=== PATIENT | female | born 1995 | race African-American/Black ===

== ENCOUNTER 2016-06-21 02:03 | Emergency (ER) | payer OTHER ==
[2016-06-21] MEDS ORDERED: ONDANSETRON 4 MG ORAL DISINTEGRATING TAB (S0181) As Ordered ONE (05:28)
--- NOTE | 2016-06-21 05:56 | EDDOCDS ---
Nurse's Notes [facility] Name: Ciara Simmons Age: 20 yrs Sex: Female : 1995 Arrival Date: 06/21/2016 Time: 02:03 Bed 7 Private MD: Diagnosis: 15 weeks gestation of ;Nausea Presentation: 06/21 02:09 Presenting complaint: Patient states: abdominal cramping with nausea and vomiting af2 today. 15 wks . Risk factors: the patient reports no vaginal bleeding. Adult Sepsis Screening: The patient does not have new or worsening altered mentation. Patient's respiratory rate is less than 22. Systolic blood pressure is greater than 100. Patient has a qSOFA score of 0- Negative Sepsis Screen. Suicide/Homicide risk assessment- the patient denies having any suicidal and/or homicidal ideations and does not present with any other emotional, behavioral or mental health complaints. 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 Transition of care: patient was not received from another setting of care. 02:09 Acuity: DEXTER Level 3 af2 02:09 Method Of Arrival: Walkin/Carried/Asstd af2 Triage Assessment: 02:11 General: Appears in no apparent distress, Behavior is cooperative. Pain: Location: af2 abdomen Pain currently is 7 out of 10 on a pain scale. HIV screening NA for this visit Offered previously. GI: Reports cramping, lower abdominal pain, nausea. Derm: Skin is normal. 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 Tylenol 325 mg Oral tab every 4 hours - PMHx: PTSD; - PSHx: none; - The history from nurses notes was reviewed: and I agree with what is documented. - Social history: Smoking status: Patient states was never smoker of tobacco. No barriers to communication noted, The patient speaks fluent [place]. - Family history: Not pertinent. - : The pt / caregiver states he / she is not on anticoagulants. Home medication list is obtained from the patient. - Hospitalizations: : No recent hospitalization is reported. - Exposure Risk Screening:: None identified. - Immunization history:: All immunizations up-to-date. - Social history:: the patient is a non-smoker, the patient does not drink alcohol. Screenin:09 Screening information is obtained from the patient. Fall risk: No risks identified. mlc Assistance ADL's: requires no assistance with activities of daily living. Abuse/DV Screen: The patient / caregiver reports he/she is: not in a situation that causes fear, pain or injury. pt states she currently lives with friends but feels safe. Nutritional screening: Has had N/V for 3 or more days. Advance Directives: Currently, there is no health care proxy. home support is adequate. Assessment: 03:09 General: Appears in no apparent distress, comfortable, Behavior is appropriate for age, mlc cooperative. Pain: Location: suprapubic area, right lower quadrant and left lower quadrant Pain currently is 7 out of 10 on a pain scale. Quality of pain is described as crampy. Neurological: Level of Consciousness is awake, alert, Oriented to person, place, time. Respiratory: Airway is patent Respiratory effort is even, unlabored, Respiratory pattern is regular, symmetrical. GI: Abdomen is gravid Bowel sounds present X 4 quads. Abd is tender to palpation in suprapubic area, right lower quadrant and left lower quadrant Reports vomiting, pt reports vomiting after every meal for approx 3 days. : Denies vaginal bleeding. Derm: Skin is pink, warm & dry. 04:19 Reassessment: Patient appears in no apparent distress at this time. no changes since mlc prior. pt resting comfortably . 05:36 General: Appears in no apparent distress, comfortable, Behavior is cooperative. mlc Neurological: Level of Consciousness is awake, alert, Oriented to person, place, time. Respiratory: Airway is patent Respiratory effort is even, unlabored, Respiratory pattern is regular. Derm: Skin is pink, warm & dry. 05:36 Reassessment: pt reports feeling stressed at work and stress at home, asking if there mlc is anything we can do. MAY Babb notified. . Social Work Consult: 05:45 Social Work Note: Met with PT and her roommate was present. PT she is and she jfb is happy about it despite the fact that she and her argue frequently. PT has moved in with a friend temporarily but she is planning to return to her . 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 PT denies SI/HI and she will present to the [facility] in the am to establish care. She is also seen at the OBGYN via [facility] with next appointment on Saturday. 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 Vital Signs: 02:08 BP 133 / 80; Pulse 78; Resp 18 S; Temp 98.0(TE); Pulse Ox 100% on R/A; Weight 53.52 kg af2 (R); Height 5 ft. 2 in. (157.48 cm) (R); Pain 7/10; 05:36 BP 111 / 75; Pulse 79; Resp 18; Temp 97.8; Pulse Ox 97% ; Pain 6/10; mlc 02:08 Body Mass Index 21.58 (53.52 kg, 157.48 cm) af2 Vitals: 02:08 Log In Time: June 21, 2016 at 02:08. af2 04:19 Heart Tones 145BPM. mlc ED Course: 02:05 Patient visited by Fan Solorio, Reg. pm4 02:05 Patient moved to Waiting pm4 02:10 Triage Initiated af2 02:11 Patient visited by Leonila Miller RN. af2 02:11 Patient moved to Pre RCE af2 02:41 Maris Durham RN is Primary Nurse. cz 02:41 Patient moved to 7 cz 03:11 Patient visited by Maris Durham RN. mlc 04:01 Ramakrishna Henning MD is Attending Physician. pc 04:13 Patient visited by Ramakrishna Henning MD. pc 04:20 Patient visited by Maris Durham RN. [facility] 05:00 [facility] Payment Agreement was scanned into [employer] and attached to record. hs2 05:22 Alex Kelly MD is Referral Physician. pc 05:36 The patient / caregiver is instructed regarding the plan of care and ED course. mlc 05:36 No IV's were initiated during this patient's visit. No procedures done that require [facility] assistance. 05:37 Patient visited by Maris Durham RN. mlc Administered Medications: 05:35 Drug: Ondansetron ODT 4 mg [ondansetron 4 mg disintegrating tablet (1 tabs)] Route: PO; mlc 05:35 Follow up: Response: Pt left department before re-evaluation is appropriate [facility] Order Results: Lab Order: Urinalysis; SPEC'M 06/21/16 03:58 Test: APPEARANCE, URINE; Value: CLEAR; Range: CLEAR; Status: F Test: COLOR, URINE; Value: STRAW; Range: YELLOW; Status: F Test: PH,URINE; Value: 7.0; Range: 5.0-9.0; Units: UNITS; Status: F Test: SPECIFIC GRAVITY URINE AUTO; Value: 1.005; Range: 1.002-1.035; Status: F Test: PROTEIN, URINE AUTO; Value: NEGATIVE; Range: NEGATIVE; Units: mg/dL; Status: F Test: GLUCOSE, URINE (UA) AUTO; Value: NEGATIVE; Range: NEGATIVE; Units: mg/dL; Status: F Test: KETONE, URINE AUTO; Value: NEGATIVE; Range: NEGATIVE; Units: mg/dL; Status: F Test: UROBILINOGEN, URINE AUTO; Value: 0.2; Range: 0.0-2.0; Units: mg/dL; Status: F Test: BILIRUBIN, URINE AUTO; Value: NEGATIVE; Range: NEGATIVE; Status: F Test: NITRITE, URINE AUTO; Value: NEGATIVE; Range: NEGATIVE; Status: F Test: LEUKOCYTE ESTERASE, URINE AUTO; Value: NEGATIVE; Range: NEGATIVE; Status: F Test: BLOOD, URINE BLOOD; Value: NEGATIVE; Range: NEGATIVE; Status: F Test: WBC, URINE AUTO; Value: 1; Range: 0-3; Units: /HPF; Status: F Test: RBC, URINE AUTO; Value: 1; Range: 0-3; Units: /HPF; Status: F Test: BACTERIA, URINE AUTO; Value: 1+; Range: NEGATIVE; Abnormal: Above high normal; Status: F Test: SQUAMOUS EPITHELIAL CELL UR AU; Value: 1; Range: 0-6; Units: /HPF; Status: F Test: HYALINE CAST, URINE AUTO; Value: 0; Range: 0-1; Units: /LPF; Status: F Outcome: 05:23 Discharge ordered by Provider. 05:36 Discharge Assessment: Patient awake, alert and oriented x 3. No cognitive and/or mlc functional deficits noted. Patient verbalized understanding of disposition instructions. patient administered narcotics - no. The following High Risk Discharge criteria are identified: None. Discharged to home ambulatory, with friend. Condition: stable. Discharge instructions given to patient, Instructed on discharge instructions, follow up and referral plans. medication usage, Demonstrated understanding of instructions, medications, Pt was receptive of discharge instructions/ teaching. Prescriptions given X 1. No special radiology studies were completed. Property sent home with patient. 05:54 Work note provided to patient. [facility] 05:55 Patient left the ED. [facility] Signatures: Ramakrishna Henning MD MD pc Zecher, Calvin, ALAYNA RN Cierra Johnson, PSA PSA Maris Alonzo RN RN mlc Fulton, Amber, RN RN 2 Mere Duggan, Reg Reg hs2 Fan Solorio, Reg Reg pm4 MTDD
--- NOTE | 2016-06-21 05:56 | EDDOCDS ---
Physician Documentation [facility] Name: Ciara Simmons Age: 20 yrs Sex: Female : 1995 Arrival Date: 06/21/2016 Time: 02:03 Bed 7 Private MD: Disposition: 06/21 05:21 Critical Care: Critical care not applicable. pc Disposition: 06/21/16 05:23 Discharged to Home/Self Care. Impression: 15 weeks gestation of , Nausea. - Condition is Stable. - Discharge Instructions: Abdominal Pain During , Nausea, Adult, Second Trimester of , [id number]. - Prescriptions for Diclegis 10- 10 mg - take 2 tablet by ORAL route every 6-8 hours; 30 tablet. - Medication Reconciliation, Local Pharmacy Hours, Work Release Form - 1 day form. - Follow up: Alex Kelly MD; When: As previously arranged; Reason: Continuance of care. - Problem is new. - Symptoms have improved. HPI: 04:17 This 20 yrs old Female presents to ER via Walkin/Carried/Asstd with pc complaints of Abdominal Cramping. 04:17 The history is obtained from the patient. The gestational age is estimated to be 15 pc weeks. The patient presents with abdominal pain, described as crampy, in the abdomen diffusely, nausea and vomiting, 3 times since the onset of symptoms. Symptoms began suddenly yesterday, and are unchanged since the onset. The patient has care through a private OB clinic, with Dr. Kelly. The patient has not experienced similar symptoms in the past. The patient has been recently seen by an heat and frost insulator helper specialist. Historical: - Allergies: No known drug Allergies; - Home Meds: 1. Tylenol 325 mg Oral tab every 4 hours - PMHx: PTSD; - PSHx: none; - The history from nurses notes was reviewed: and I agree with what is documented. - Social history: Smoking status: Patient states was never smoker of tobacco. No barriers to communication noted, The patient speaks fluent Mongolian. - Family history: Not pertinent. - : The pt / caregiver states he / she is not on anticoagulants. Home medication list is obtained from the patient. - Hospitalizations: : No recent hospitalization is reported. - Exposure Risk Screening:: None identified. - Immunization history:: All immunizations up-to-date. - Social history:: the patient is a non-smoker, the patient does not drink alcohol. 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 The gastrointestinal and genitourinary pc components are also addressed in the HPI. 04:20 GI/: decreased bowel movements. pc Exam: 04:17 General Appearance: alert, no acute distress. pc 04:17 ENT: ear, nose and throat normal, pharynx normal. 04:17 Neck: The exam reveals no acute abnormalities. ROM is normal and painless. No nuchal rigidity is noted.. 04:17 Respiratory: breathing is even and unlabored, breath sounds are normal. 04:17 Cardiovascular: regular pulse rate, regular heart rhythm, normal heart sounds, equal and full pulses bilaterally. 04:17 Abdomen: non-tender, normal bowel sounds, no organomegaly, the fundal height is is measured at 16 cm. 04:17 Abdomen: the heart tones were heard with a Doppler device and are 156 bpm. 04:17 Back: normal inspection. 04:17 Skin: skin color is normal, warm, dry. 04:17 Extremities: The extremities have a grossly normal appearance, are non-tender, without acute ROM abnormalities, no pedal edema. 04:17 Neuro: alert, oriented to person, place and time, cranial nerves normal as tested, no motor deficits, no sensory deficits. Vital Signs: 02:08 BP 133 / 80; Pulse 78; Resp 18 S; Temp 98.0(TE); Pulse Ox 100% on R/A; Weight 53.52 kg af2 / 117.99 lbs (R); Height 5 ft. 2 in. (157.48 cm) (R); Pain 7/10; 05:36 BP 111 / 75; Pulse 79; Resp 18; Temp 97.8; Pulse Ox 97% ; Pain 6/10; mlc 02:08 Body Mass Index 21.58 (53.52 kg, 157.48 cm) af2 MDM: 03:29 Heart Tones ordered. pc 03:30 Urinalysis Ordered. EDMS 03:30 Urine Culture Ordered. EDMS 04:13 Urinalysis Reviewed. pc 04:17 Differential diagnosis: discomfort of , urinary tract infection, constipation. pc Plan: labs, heart tones. 04:56 Financial registration complete. hs2 05:00 [facility] Payment Agreement was scanned into [employer] and attached to record. hs2 05:21 Data reviewed: old medical records, vital signs, nurses notes, lab test results. Test pc interpretation: LAB - all labs as ordered have been reviewed, interpreted and considered in the overall management of the clinical presentation;. The patient has been re-examined and re-evaluated. The patient's symptoms have mildly improved after treatment. Disposition: The historical points, examination findings, and any diagnostic results supporting the provided diagnosis, were discussed with the patient or legal guardian. The need for outpatient follow up with the provider listed on their discharge instructions was discussed. They were encouraged to return to [facility], or the nearest ED, if symptoms worsen/persist, or for any other questions/concerns. 05:22 Ondansetron ODT Oral Disintegrating Tablet 4 mg PO once ordered. pc Administered Medications: 05:35 Drug: Ondansetron ODT 4 mg [ondansetron 4 mg disintegrating tablet (1 tabs)] Route: PO; mlc 05:35 Follow up: Response: Pt left department before re-evaluation is appropriate [facility] Signatures: Dispatcher MedHoNumecent EDRamakrishna Turner MD MD pc Maris Durham RN RN mlc Leonila Miller RN RN af2 Mere Duggan, Reg Reg hs2 The chart was reviewed and I authenticate all verbal orders and agree with the evaluation and treatment provided.Corrections: (The following items were deleted from the chart) 04:20 04:17 All systems are negative except as listed. The gastrointestinal and genitourinary pc components are also addressed in the HPI. pc Attachments: 05:00 [facility] Payment Agreement hs2 MTDD
--- NOTE | 2016-06-23 06:56 | EDDOCDS ---
Physician Documentation [facility] Name: Ciara Simmons Age: 20 yrs Sex: Female : 1995 Arrival Date: 06/21/2016 Time: 02:03 Bed 7 Private MD: Disposition: 06/21 05:21 Critical Care: Critical care not applicable. pc Disposition: 06/21/16 05:23 Discharged to Home/Self Care. Impression: 15 weeks gestation of , Nausea. - Condition is Stable. - Discharge Instructions: Abdominal Pain During , Nausea, Adult, Second Trimester of , [id number]. - Prescriptions for Diclegis 10- 10 mg - take 2 tablet by ORAL route every 6-8 hours; 30 tablet. - Medication Reconciliation, Local Pharmacy Hours, Work Release Form - 1 day form. - Follow up: Alex Kelly MD; When: As previously arranged; Reason: Continuance of care. - Problem is new. - Symptoms have improved. HPI: 04:17 This 20 yrs old Female presents to ER via Walkin/Carried/Asstd with pc complaints of Abdominal Cramping. 04:17 The history is obtained from the patient. The gestational age is estimated to be 15 pc weeks. The patient presents with abdominal pain, described as crampy, in the abdomen diffusely, nausea and vomiting, 3 times since the onset of symptoms. Symptoms began suddenly yesterday, and are unchanged since the onset. The patient has care through a private OB clinic, with Dr. Kelly. The patient has not experienced similar symptoms in the past. The patient has been recently seen by an supervisor customer complaint service specialist. Historical: - Allergies: No known drug Allergies; - Home Meds: 1. Tylenol 325 mg Oral tab every 4 hours - PMHx: PTSD; - PSHx: none; - The history from nurses notes was reviewed: and I agree with what is documented. - Social history: Smoking status: Patient states was never smoker of tobacco. No barriers to communication noted, The patient speaks fluent Telugu. - Family history: Not pertinent. - : The pt / caregiver states he / she is not on anticoagulants. Home medication list is obtained from the patient. - Hospitalizations: : No recent hospitalization is reported. - Exposure Risk Screening:: None identified. - Immunization history:: All immunizations up-to-date. - Social history:: the patient is a non-smoker, the patient does not drink alcohol. 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 The gastrointestinal and genitourinary pc components are also addressed in the HPI. 04:20 GI/: decreased bowel movements. pc Exam: 04:17 General Appearance: alert, no acute distress. pc 04:17 ENT: ear, nose and throat normal, pharynx normal. 04:17 Neck: The exam reveals no acute abnormalities. ROM is normal and painless. No nuchal rigidity is noted.. 04:17 Respiratory: breathing is even and unlabored, breath sounds are normal. 04:17 Cardiovascular: regular pulse rate, regular heart rhythm, normal heart sounds, equal and full pulses bilaterally. 04:17 Abdomen: non-tender, normal bowel sounds, no organomegaly, the fundal height is is measured at 16 cm. 04:17 Abdomen: the heart tones were heard with a Doppler device and are 156 bpm. 04:17 Back: normal inspection. 04:17 Skin: skin color is normal, warm, dry. 04:17 Extremities: The extremities have a grossly normal appearance, are non-tender, without acute ROM abnormalities, no pedal edema. 04:17 Neuro: alert, oriented to person, place and time, cranial nerves normal as tested, no motor deficits, no sensory deficits. Vital Signs: 02:08 BP 133 / 80; Pulse 78; Resp 18 S; Temp 98.0(TE); Pulse Ox 100% on R/A; Weight 53.52 kg af2 / 117.99 lbs (R); Height 5 ft. 2 in. (157.48 cm) (R); Pain 7/10; 05:36 BP 111 / 75; Pulse 79; Resp 18; Temp 97.8; Pulse Ox 97% ; Pain 6/10; mlc 02:08 Body Mass Index 21.58 (53.52 kg, 157.48 cm) af2 MDM: 03:29 Heart Tones ordered. pc 03:30 Urinalysis Ordered. EDMS 03:30 Urine Culture Ordered. EDMS 04:13 Urinalysis Reviewed. pc 04:17 Differential diagnosis: discomfort of , urinary tract infection, constipation. pc Plan: labs, heart tones. 04:56 Financial registration complete. hs2 05:00 [facility] Payment Agreement was scanned into [email or web address] and attached to record. hs2 05:21 Data reviewed: old medical records, vital signs, nurses notes, lab test results. Test pc interpretation: LAB - all labs as ordered have been reviewed, interpreted and considered in the overall management of the clinical presentation;. The patient has been re-examined and re-evaluated. The patient's symptoms have mildly improved after treatment. Disposition: The historical points, examination findings, and any diagnostic results supporting the provided diagnosis, were discussed with the patient or legal guardian. The need for outpatient follow up with the provider listed on their discharge instructions was discussed. They were encouraged to return to [facility], or the nearest ED, if symptoms worsen/persist, or for any other questions/concerns. 05:22 Ondansetron ODT Oral Disintegrating Tablet 4 mg PO once ordered. pc Administered Medications: 05:35 Drug: Ondansetron ODT 4 mg [ondansetron 4 mg disintegrating tablet (1 tabs)] Route: PO; mlc 05:35 Follow up: Response: Pt left department before re-evaluation is appropriate [facility] Signatures: Dispatcher MedHoGeneva Mars EDMS Ramakrishna Henning MD MD pc Maris Durham RN RN mlc Leonila Miller RN RN af2 Mere Duggan, Reg Reg hs2 The chart was reviewed and I authenticate all verbal orders and agree with the evaluation and treatment provided.Corrections: (The following items were deleted from the chart) 04:20 04:17 All systems are negative except as listed. The gastrointestinal and genitourinary pc components are also addressed in the HPI. pc Attachments: 05:00 [facility] Payment Agreement hs2 Chart Complete MTDD
--- NOTE | 2016-06-23 06:56 | EDDOCDS ---
Physician Documentation [facility] Name: Ciara Simmons Age: 20 yrs Sex: Female : 1995 Arrival Date: 06/21/2016 Time: 02:03 Bed 7 Private MD: Disposition: 06/21 05:21 Critical Care: Critical care not applicable. pc Disposition: 06/21/16 05:23 Discharged to Home/Self Care. Impression: 15 weeks gestation of , Nausea. - Condition is Stable. - Discharge Instructions: Abdominal Pain During , Nausea, Adult, Second Trimester of , Vnda-hx-[id number]. - Prescriptions for Diclegis 10- 10 mg - take 2 tablet by ORAL route every 6-8 hours; 30 tablet. - Medication Reconciliation, Local Pharmacy Hours, Work Release Form - 1 day form. - Follow up: Alex Kelly MD; When: As previously arranged; Reason: Continuance of care. - Problem is new. - Symptoms have improved. HPI: 04:17 This 20 yrs old Female presents to ER via Walkin/Carried/Asstd with pc complaints of Abdominal Cramping. 04:17 The history is obtained from the patient. The gestational age is estimated to be 15 pc weeks. The patient presents with abdominal pain, described as crampy, in the abdomen diffusely, nausea and vomiting, 3 times since the onset of symptoms. Symptoms began suddenly yesterday, and are unchanged since the onset. The patient has care through a private OB clinic, with Dr. Kelly. The patient has not experienced similar symptoms in the past. The patient has been recently seen by an motel keeper specialist. Historical: - Allergies: No known drug Allergies; - Home Meds: 1. Tylenol 325 mg Oral tab every 4 hours - PMHx: PTSD; - PSHx: none; - The history from nurses notes was reviewed: and I agree with what is documented. - Social history: Smoking status: Patient states was never smoker of tobacco. No barriers to communication noted, The patient speaks fluent Polish. - Family history: Not pertinent. - : The pt / caregiver states he / she is not on anticoagulants. Home medication list is obtained from the patient. - Hospitalizations: : No recent hospitalization is reported. - Exposure Risk Screening:: None identified. - Immunization history:: All immunizations up-to-date. - Social history:: the patient is a non-smoker, the patient does not drink alcohol. MANAGER PROCESS: 02:08 LMP 03/19/2016 af2 02:08 Verified af2 ROS: 04:20 All systems are negative except as listed. The gastrointestinal and genitourinary pc components are also addressed in the HPI. 04:20 GI/: decreased bowel movements. pc Exam: 04:17 General Appearance: alert, no acute distress. pc 04:17 ENT: ear, nose and throat normal, pharynx normal. 04:17 Neck: The exam reveals no acute abnormalities. ROM is normal and painless. No nuchal rigidity is noted.. 04:17 Respiratory: breathing is even and unlabored, breath sounds are normal. 04:17 Cardiovascular: regular pulse rate, regular heart rhythm, normal heart sounds, equal and full pulses bilaterally. 04:17 Abdomen: non-tender, normal bowel sounds, no organomegaly, the fundal height is is measured at 16 cm. 04:17 Abdomen: the heart tones were heard with a Doppler device and are 156 bpm. 04:17 Back: normal inspection. 04:17 Skin: skin color is normal, warm, dry. 04:17 Extremities: The extremities have a grossly normal appearance, are non-tender, without acute ROM abnormalities, no pedal edema. 04:17 Neuro: alert, oriented to person, place and time, cranial nerves normal as tested, no motor deficits, no sensory deficits. Vital Signs: 02:08 BP 133 / 80; Pulse 78; Resp 18 S; Temp 98.0(TE); Pulse Ox 100% on R/A; Weight 53.52 kg af2 / 117.99 lbs (R); Height 5 ft. 2 in. (157.48 cm) (R); Pain 7/10; 05:36 BP 111 / 75; Pulse 79; Resp 18; Temp 97.8; Pulse Ox 97% ; Pain 6/10; mlc 02:08 Body Mass Index 21.58 (53.52 kg, 157.48 cm) af2 MDM: 03:29 Heart Tones ordered. pc 03:30 Urinalysis Ordered. EDMS 03:30 Urine Culture Ordered. EDMS 04:13 Urinalysis Reviewed. pc 04:17 Differential diagnosis: discomfort of , urinary tract infection, constipation. pc Plan: labs, heart tones. 04:56 Financial registration complete. hs2 05:00 [facility] Payment Agreement was scanned into waygum and attached to record. hs2 05:21 Data reviewed: old medical records, vital signs, nurses notes, lab test results. Test pc interpretation: LAB - all labs as ordered have been reviewed, interpreted and considered in the overall management of the clinical presentation;. The patient has been re-examined and re-evaluated. The patient's symptoms have mildly improved after treatment. Disposition: The historical points, examination findings, and any diagnostic results supporting the provided diagnosis, were discussed with the patient or legal guardian. The need for outpatient follow up with the provider listed on their discharge instructions was discussed. They were encouraged to return to [facility], or the nearest ED, if symptoms worsen/persist, or for any other questions/concerns. 05:22 Ondansetron ODT Oral Disintegrating Tablet 4 mg PO once ordered. pc Administered Medications: 05:35 Drug: Ondansetron ODT 4 mg [ondansetron 4 mg disintegrating tablet (1 tabs)] Route: PO; mlc 05:35 Follow up: Response: Pt left department before re-evaluation is appropriate [facility] Signatures: Dispatcher [employer] EDMS Ramakrishna Henning MD MD pc Maris Durham RN RN mlc Leonila Miller RN RN af2 Mere Duggan, Reg Reg hs2 The chart was reviewed and I authenticate all verbal orders and agree with the evaluation and treatment provided.Corrections: (The following items were deleted from the chart) 04:20 04:17 All systems are negative except as listed. The gastrointestinal and genitourinary pc components are also addressed in the HPI. pc Attachments: 05:00 [facility] Payment Agreement hs2 Chart Complete MTDD
--- NOTE | 2016-06-23 06:56 | EDDOCDS ---
Nurse's Notes [facility] Name: Ciara Simmons Age: 20 yrs Sex: Female : 1995 Arrival Date: 06/21/2016 Time: 02:03 Bed 7 Private MD: Diagnosis: 15 weeks gestation of ;Nausea Presentation: 06/21 02:09 Presenting complaint: Patient states: abdominal cramping with nausea and vomiting af2 today. 15 wks . Risk factors: the patient reports no vaginal bleeding. Adult Sepsis Screening: The patient does not have new or worsening altered mentation. Patient's respiratory rate is less than 22. Systolic blood pressure is greater than 100. Patient has a qSOFA score of 0- Negative Sepsis Screen. Suicide/Homicide risk assessment- the patient denies having any suicidal and/or homicidal ideations and does not present with any other emotional, behavioral or mental health complaints. 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 Transition of care: patient was not received from another setting of care. 02:09 Acuity: DEXTER Level 3 af2 02:09 Method Of Arrival: Walkin/Carried/Asstd af2 Triage Assessment: 02:11 General: Appears in no apparent distress, Behavior is cooperative. Pain: Location: af2 abdomen Pain currently is 7 out of 10 on a pain scale. HIV screening NA for this visit Offered previously. GI: Reports cramping, lower abdominal pain, nausea. Derm: Skin is normal. 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 Tylenol 325 mg Oral tab every 4 hours - PMHx: PTSD; - PSHx: none; - The history from nurses notes was reviewed: and I agree with what is documented. - Social history: Smoking status: Patient states was never smoker of tobacco. No barriers to communication noted, The patient speaks fluent Croatian. - Family history: Not pertinent. - : The pt / caregiver states he / she is not on anticoagulants. Home medication list is obtained from the patient. - Hospitalizations: : No recent hospitalization is reported. - Exposure Risk Screening:: None identified. - Immunization history:: All immunizations up-to-date. - Social history:: the patient is a non-smoker, the patient does not drink alcohol. Screenin:09 Screening information is obtained from the patient. Fall risk: No risks identified. mlc Assistance ADL's: requires no assistance with activities of daily living. Abuse/DV Screen: The patient / caregiver reports he/she is: not in a situation that causes fear, pain or injury. pt states she currently lives with friends but feels safe. Nutritional screening: Has had N/V for 3 or more days. Advance Directives: Currently, there is no health care proxy. home support is adequate. Assessment: 03:09 General: Appears in no apparent distress, comfortable, Behavior is appropriate for age, mlc cooperative. Pain: Location: suprapubic area, right lower quadrant and left lower quadrant Pain currently is 7 out of 10 on a pain scale. Quality of pain is described as crampy. Neurological: Level of Consciousness is awake, alert, Oriented to person, place, time. Respiratory: Airway is patent Respiratory effort is even, unlabored, Respiratory pattern is regular, symmetrical. GI: Abdomen is gravid Bowel sounds present X 4 quads. Abd is tender to palpation in suprapubic area, right lower quadrant and left lower quadrant Reports vomiting, pt reports vomiting after every meal for approx 3 days. : Denies vaginal bleeding. Derm: Skin is pink, warm & dry. 04:19 Reassessment: Patient appears in no apparent distress at this time. no changes since mlc prior. pt resting comfortably . 05:36 General: Appears in no apparent distress, comfortable, Behavior is cooperative. mlc Neurological: Level of Consciousness is awake, alert, Oriented to person, place, time. Respiratory: Airway is patent Respiratory effort is even, unlabored, Respiratory pattern is regular. Derm: Skin is pink, warm & dry. 05:36 Reassessment: pt reports feeling stressed at work and stress at home, asking if there mlc is anything we can do. MAY Babb notified. . Social Work Consult: 05:45 Social Work Note: Met with PT and her roommate was present. PT she is and she jfb is happy about it despite the fact that she and her argue frequently. PT has moved in with a friend temporarily but she is planning to return to her . 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 PT denies SI/HI and she will present to the [facility] in the am to establish care. She is also seen at the OBGYN via [facility] with next appointment on Saturday. 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 Vital Signs: 02:08 BP 133 / 80; Pulse 78; Resp 18 S; Temp 98.0(TE); Pulse Ox 100% on R/A; Weight 53.52 kg af2 (R); Height 5 ft. 2 in. (157.48 cm) (R); Pain 7/10; 05:36 BP 111 / 75; Pulse 79; Resp 18; Temp 97.8; Pulse Ox 97% ; Pain 6/10; mlc 02:08 Body Mass Index 21.58 (53.52 kg, 157.48 cm) af2 Vitals: 02:08 Log In Time: June 21, 2016 at 02:08. af2 04:19 Heart Tones 145BPM. mlc ED Course: 02:05 Patient visited by Fan Solorio, Reg. pm4 02:05 Patient moved to Waiting pm4 02:10 Triage Initiated af2 02:11 Patient visited by Leonila Miller RN. af2 02:11 Patient moved to Pre RCE af2 02:41 Maris Durham RN is Primary Nurse. cz 02:41 Patient moved to 7 cz 03:11 Patient visited by Maris Durham RN. mlc 04:01 Ramakrishna Henning MD is Attending Physician. pc 04:13 Patient visited by Ramakrishna Henning MD. pc 04:20 Patient visited by Maris Durham RN. [facility] 05:00 [facility] Payment Agreement was scanned into [employer] and attached to record. hs2 05:22 Alex Kelly MD is Referral Physician. pc 05:36 The patient / caregiver is instructed regarding the plan of care and ED course. mlc 05:36 No IV's were initiated during this patient's visit. No procedures done that require [facility] assistance. 05:37 Patient visited by Maris Durham RN. mlc Administered Medications: 05:35 Drug: Ondansetron ODT 4 mg [ondansetron 4 mg disintegrating tablet (1 tabs)] Route: PO; mlc 05:35 Follow up: Response: Pt left department before re-evaluation is appropriate [facility] Order Results: Lab Order: Urinalysis; SPEC'M 06/21/16 03:58 Test: APPEARANCE, URINE; Value: CLEAR; Range: CLEAR; Status: F Test: COLOR, URINE; Value: STRAW; Range: YELLOW; Status: F Test: PH,URINE; Value: 7.0; Range: 5.0-9.0; Units: UNITS; Status: F Test: SPECIFIC GRAVITY URINE AUTO; Value: 1.005; Range: 1.002-1.035; Status: F Test: PROTEIN, URINE AUTO; Value: NEGATIVE; Range: NEGATIVE; Units: mg/dL; Status: F Test: GLUCOSE, URINE (UA) AUTO; Value: NEGATIVE; Range: NEGATIVE; Units: mg/dL; Status: F Test: KETONE, URINE AUTO; Value: NEGATIVE; Range: NEGATIVE; Units: mg/dL; Status: F Test: UROBILINOGEN, URINE AUTO; Value: 0.2; Range: 0.0-2.0; Units: mg/dL; Status: F Test: BILIRUBIN, URINE AUTO; Value: NEGATIVE; Range: NEGATIVE; Status: F Test: NITRITE, URINE AUTO; Value: NEGATIVE; Range: NEGATIVE; Status: F Test: LEUKOCYTE ESTERASE, URINE AUTO; Value: NEGATIVE; Range: NEGATIVE; Status: F Test: BLOOD, URINE BLOOD; Value: NEGATIVE; Range: NEGATIVE; Status: F Test: WBC, URINE AUTO; Value: 1; Range: 0-3; Units: /HPF; Status: F Test: RBC, URINE AUTO; Value: 1; Range: 0-3; Units: /HPF; Status: F Test: BACTERIA, URINE AUTO; Value: 1+; Range: NEGATIVE; Abnormal: Above high normal; Status: F Test: SQUAMOUS EPITHELIAL CELL UR AU; Value: 1; Range: 0-6; Units: /HPF; Status: F Test: HYALINE CAST, URINE AUTO; Value: 0; Range: 0-1; Units: /LPF; Status: F Lab Order: Urine Culture; SPEC'M 06/21/16 03:58 Test: URINE CULTURE; Value: <EXTERNAL COMMENT eCWMed> FULL REPORT IN LAB NOTES (eCW and Medent).; Status: F Test: URINE CULTURE; Value: URINE CULTURE RESULT NO GROWTH; Status: F Outcome: 05:23 Discharge ordered by Provider. 05:36 Discharge Assessment: Patient awake, alert and oriented x 3. No cognitive and/or mlc functional deficits noted. Patient verbalized understanding of disposition instructions. patient administered narcotics - no. The following High Risk Discharge criteria are identified: None. Discharged to home ambulatory, with friend. Condition: stable. Discharge instructions given to patient, Instructed on discharge instructions, follow up and referral plans. medication usage, Demonstrated understanding of instructions, medications, Pt was receptive of discharge instructions/ teaching. Prescriptions given X 1. No special radiology studies were completed. Property sent home with patient. 05:54 Work note provided to patient. mlc 05:55 Patient left the ED. mlc Signatures: Ramakrishna Henning MD MD pc Zecher, Calvin, RN RN cz Cierra Rios, PSA PSA Maris Alonzo RN RN mlc Fulton, Amber, RN RN af2 Mere Duggan, Reg Reg hs2 Fan Solorio, Reg Reg pm4 Chart Complete MTDD
== END 2016-06-21 05:55 | disposition home or self-care (01) ==
LOC: M ED 02:03
DX: O26.892 Other specified pregnancy related conditions, second trimester (principal); R11.0 Nausea; O99.342 Other mental disorders complicating pregnancy, second trimester; F43.10 Post-traumatic stress disorder, unspecified; Z3A.15 15 weeks gestation of pregnancy

== ENCOUNTER 2016-07-18 17:52 | Emergency (ER) | payer OTHER ==
[2016-07-18] MEDS ORDERED: METOCLOPRAMIDE INJ 10MG/2ML VIAL (J2765) As Ordered ONE (18:39)
[2016-07-18 18:49] LABS: BASO % 0.3 % (0.0-1.0); EOS # 0.2 K/mm3 (0.0-0.50); EOS % 1.7 % (0.0-3.0); LARGE UNSTAINED CELL # 0.1 K/mm3 (0.0-0.4); LARGE UNSTAINED CELL % 1.4 % (0.0-4.0); LYMPH # 1.9 K/mm3 (1.5-6.5); LYMPH % 22.4 % (24.0-44.0); MEAN CORPUSCULAR HGB CONC 34.1 g/dl (32.0-36.5); MEAN CORPUSCULAR VOLUME 87.9 fl (80.0-96.0); MONO # 0.4 K/mm3 (0.0-0.8); MONO % 4.9 % (0.0-5.0); NEUTROPHILS # 5.9 K/mm3 (1.8-7.7); NEUTROPHILS % 69.3 % (36.0-66.0); PLATELET COUNT, AUTOMATED 210 k/mm3 (150-450); RED CELL DISTRIBUTION WIDTH 14.4 % (11.5-14.5); WHITE BLOOD COUNT 8.6 K/mm3 (4.0-10.0)
[2016-07-18 18:56] LABS: INR 0.92
[2016-07-18 18:59] LABS: CONTROL LINE HCG INT CTR LINE PRESENT
[2016-07-18 19:07] LABS: ALBUMIN 3.4 GM/DL (3.2-5.2); ALBUMIN/GLOBULIN RATIO 1.06 (1.00-1.93); ALKALINE PHOSPHATASE 66 U/L (45-117); ALT/SGPT 99 U/L (12-78); AMYLASE 93 U/L (25-115); ANION GAP 9 MEQ/L (8-16); AST/SGOT 69 U/L (15-37); BILIRUBIN,DIRECT < 0.1 MG/DL (0.0-0.2); BILIRUBIN,TOTAL 0.3 MG/DL (0.2-1.0); BLOOD UREA NITROGEN 8 MG/DL (7-18); CALCIUM LEVEL 8.6 MG/DL (8.5-10.1); CARBON DIOXIDE LEVEL 26 MEQ/L (21-32); CHLORIDE LEVEL 105 MEQ/L (98-107); CREATININE FOR GFR 0.71 MG/DL (0.55-1.02); GLOMERULAR FILTRATION RATE > 60.0 (>60); GLUCOSE, FASTING 70 MG/DL (70-105); POTASSIUM SERUM 3.6 MEQ/L (3.5-5.1); SODIUM LEVEL 140 MEQ/L (136-145); TOTAL PROTEIN 6.6 GM/DL (6.4-8.2)
--- NOTE | 2016-07-18 20:11 | EDDOCDS ---
Physician Documentation [facility] Name: Ciara Simmons Age: 21 yrs Sex: Female : 1995 Arrival Date: 07/18/2016 Time: 17:52 Bed I Private MD: ALAN CORDERO Disposition: 07/18/16 19:41 Discharged to Home/Self Care. Impression: related conditions, unspecified, Headache. - Condition is Stable. - Discharge Instructions: General Headache Without Cause, Abdominal Pain During , [id number]. - Prescriptions for Reglan 10 mg Oral Tablet - take 1 tablet by ORAL route every 6 hours take 30 minutes before meals and at bedtime; 20 tablet. - Medication Reconciliation, Local Pharmacy Hours form. - Follow up: Coral Miner, OB; When: 4 - 5 days; Reason: Recheck today's complaints, Continuance of care. - Problem is an ongoing problem. - Symptoms are unchanged. Historical: - Allergies: No known drug Allergies; - Home Meds: 1. Vitamin Oral 1 tab once daily 2. Tylenol 325 mg Oral tab every 4 hours (Last dose: 07/18/2016 05:00) - PMHx: PTSD; - PSHx: none; - Social history: Smoking status: Patient states former smoker of tobacco. No barriers to communication noted, The patient speaks fluent [place], Speaks appropriately for age. - Family history: Not pertinent. - : The pt / caregiver states he / she is not on anticoagulants. Home medication list is obtained from the patient. - Exposure Risk Screening:: None identified. 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 2 in. (157.48 cm); 20:04 BP 106 / 63; Pulse 83; Resp 18; Temp 97.6; Pulse Ox 98% ; ajs 17:54 Body Mass Index 21.58 (53.52 kg, 157.48 cm) elp MDM: 18:21 NS 0.9% 1000 ml IV at bolus once ordered. ke 18:21 IV Saline Lock ordered. ke 18:21 Undress patient appropriately for examination ordered. ke 18:21 Metoclopramide 10 mg IV at 40 mg/hr once over 15 mins ordered. ke 18:22 Amylase Ordered. EDMS 18:22 Basic Metabolic Profile Ordered. EDMS 18:22 CBC with Diff Ordered. EDMS 18:22 HCG,Serum Qualitative Ordered. EDMS 18:22 Lipase Ordered. EDMS 18:22 Liver Profile Ordered. EDMS 18:22 Prothrombin Time Profile\E\INR Ordered. EDMS 18:22 Type & Screen Ordered. EDMS 18:23 NOTHING BY MOUTH+DIET ordered. EDMS 18:25 UA Ordered. EDMS 18:25 Urine Culture Ordered. EDMS 18:36 US OBS SINGEL GEST Ordered. EDMS 19:13 Financial registration complete. zo 19:19 [facility] Payment Agreement was scanned into LRN and attached to record. zo 19:26 CBC with Diff Reviewed. ke 19:26 HCG,Serum Qualitative Reviewed. ke 19:26 Lipase Reviewed. ke 19:26 Liver Profile Reviewed. ke 19:26 Amylase Reviewed. ke 19:26 Basic Metabolic Profile Reviewed. ke 19:26 Prothrombin Time Profile\E\INR Reviewed. ke 19:26 Type & Screen Reviewed. ke 19:26 UA Reviewed. ke Administered Medications: 18:47 Drug: NS 0.9% 1000 ml Route: IV; Rate: bolus; Site: left antecubital; jmk 18:47 Drug: Metoclopramide 10 mg [metoclopramide 5 mg/mL injection solution] Route: IV; Rate: jmk 40 mg/hr; Infused Over: 15 mins; Site: left antecubital; Signatures: Dispatcher [facility] Ovidio Goodman,Gerardo Dickinson RN, ELECTRICIAN POWERHOUSE ELECTRICIAN POWERHOUSE Cecilia GonzálesRN RN ck1 Delmis Schwartz Christina,RN RN cf2 The chart was reviewed and I authenticate all verbal orders and agree with the evaluation and treatment provided.Corrections: (The following items were deleted from the chart) 18:35 18:23 US 1ST TRI EA ADDITIONAL GEST+US ordered. EDMS EDMS 18:36 18:35 1ST TRIMESTER US ordered. EDMS EDMS Attachments: 19:19 [facility] Payment Agreement zo MTDD
--- NOTE | 2016-07-18 20:11 | EDDOCDS ---
Nurse's Notes [facility] Name: Ciara Simmons Age: 21 yrs Sex: Female : 1995 Arrival Date: 07/18/2016 Time: 17:52 Bed I9 Private MD: [facility] Diagnosis: related conditions, unspecified;Headache Presentation: 07/18 17:56 Presenting complaint: Patient states: Headache, sharp pains on right side of abdomen ck1 radiating to umbilicus, increased nausea over the past week. Denies vaginal bleeding. This patient has no additional risk factors. Adult Sepsis Screening: The patient does not have new or worsening altered mentation. Patient's respiratory rate is less than 22. Systolic blood pressure is greater than 100. Patient has a qSOFA score of 0- Negative Sepsis Screen. Suicide/Homicide risk assessment- the patient denies having any suicidal and/or homicidal ideations and does not present with any other emotional, behavioral or mental health complaints. Status: Patient is not a dispatcher service or work or dependent. Transition of care: patient was not received from another setting of care. 17:56 Acuity: DEXTER Level 3 ck1 17:56 Method Of Arrival: Walkin/Carried/Asstd ck1 17:59 Presenting complaint: Patient states: Patient is 18 weeks . ck1 Triage Assessment: 17:59 Headache History: This headache is more severe than any previous headaches the patient ck1 has experienced. General: Appears in no apparent distress, comfortable, Behavior is appropriate for age, cooperative. Pain: Location: head Pain currently is 8 out of 10 on a pain scale. Pain began gradually Also complains of decreased appetite, nausea. HIV screening NA for this visit Offered previously. Neurological: Level of Consciousness is awake, alert, obeys commands, Oriented to person, place, time. GI: Reports nausea. : Denies cramping vaginal bleeding. 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 Vitamin Oral 1 tab once daily 2. Tylenol 325 mg Oral tab every 4 hours (Last dose: 07/18/2016 05:00) - PMHx: PTSD; - PSHx: none; - Social history: Smoking status: Patient states former smoker of tobacco. No barriers to communication noted, The patient speaks fluent Georgian, Speaks appropriately for age. - Family history: Not pertinent. - : The pt / caregiver states he / she is not on anticoagulants. Home medication list is obtained from the patient. - Exposure Risk Screening:: None identified. Screenin:52 Screening information is obtained from the patient. Fall risk: No risks identified. jmk Assistance ADL's: requires no assistance with activities of daily living. Abuse/DV Screen: The patient / caregiver reports he/she is: not in a situation that causes fear, pain or injury. Nutritional screening: No deficits noted. Advance Directives: Currently, there is no health care proxy. There is no active DNR order. There is no living will. There is no Power of Ceramic Coater. Advance directive information has not previously been placed in an [facility] medical record. Further advance directive information is declined. home support is adequate. Assessment: 18:52 General: Appears in no apparent distress, NAD skin warm and dry. color satisfactory. jmk Moist pink oral mucosa. reports 6/10 head pain, yet is actively texting, and watching TV.. Pain: Pain currently is 6 out of 10 on a pain scale. Neurological: Level of Consciousness is awake, alert, Oriented to person, place, time. 18:54 General: Appears FHT 154 of good quality.. jmk 20:08 Reassessment: Patient appears in no apparent distress at this time. Patient states cf2 feeling better. Patient states symptoms have improved. Pain: Location: abdomen. Pain: Pain does not radiate. Quality of pain is described as stabbing. Pain: Pain began 2-3 days ago Is. Pain: Alleviated by nothing. Aggravated by nothing. Pain: Noted to be Also complains of no other associated symptoms. Vital Signs: 17:54 BP 121 / 59; Pulse 83; Resp 16; Temp 98.0(O); Pulse Ox 100% on R/A; Weight 53.52 kg; [facility] Height 5 ft. 2 in. (157.48 cm); 20:04 BP 106 / 63; Pulse 83; Resp 18; Temp 97.6; Pulse Ox 98% ; ajs 17:54 Body Mass Index 21.58 (53.52 kg, 157.48 cm) [facility] Vitals: 17:54 Log In Time: July 18, 2016 at 17:52. elp ED Course: 17:53 Patient visited by Neeta Dahl PCA. elp 17:53 Patient moved to Waiting elp 17:54 [facility] is Private Physician. elp 17:55 Patient visited by Neeta Dahl PCA. elp 17:55 Patient moved to Pre RCE elp 17:58 Triage Initiated ck1 18:08 Patient moved to Triage 1 ck1 18:10 Renny Ware PA-C is [facility]. cc10 18:10 Patient moved to I lf1 18:13 Gerardo Byers FNP is [facility]. ke 18:13 Patient visited by Gerardo Byers FNP. ke 18:13 Patient visited by Gerardo Byers FNP. ke 18:36 Patient visited by Gerardo Byers FNP. ke 18:39 Amylase Sent. jmk 18:39 Basic Metabolic Profile Sent. jmk 18:39 CBC with Diff Sent. jmk 18:39 HCG,Serum Qualitative Sent. jmk 18:39 Lipase Sent. jmk 18:39 Liver Profile Sent. jmk 18:39 Prothrombin Time Profile\E\INR Sent. jmk 18:39 Type & Screen Sent. jmk 18:52 The patient / caregiver is instructed regarding the plan of care and ED course. jmk 18:52 Inserted saline lock: 20 gauge in left. jmk 18:57 Patient visited by Ovidio Goodman,ALAYNA. jmk 19:09 Patient moved to [facility] am17 19:19 [facility] Payment Agreement was scanned into [employer] and attached to record. zo 19:24 Patient moved to I am17 19:26 Patient visited by Gerardo Byers FNP. ke 19:41 Coral Miner, OB is Referral Physician. ke 20:04 Patient visited by Debra John. ajs 20:08 Discontinued lock. No procedures done that require assistance. cf2 20:10 Naomi Barraza MD is Attending Physician. cf2 Administered Medications: 18:47 Drug: NS 0.9% 1000 ml Route: IV; Rate: bolus; Site: left antecubital; jmk 18:47 Drug: Metoclopramide 10 mg [metoclopramide 5 mg/mL injection solution] Route: IV; Rate: jmk 40 mg/hr; Infused Over: 15 mins; Site: left antecubital; Order Results: Lab Order: Amylase; SPEC'M 07/18/16 18:36 Test: AMYLASE; Value: 93; Range: 25-115; Units: U/L; Status: F Lab Order: Basic Metabolic Profile; SPEC'M 07/18/16 18:36 Test: GLUCOSE, FASTING; Value: 70; Range: 70-105; Units: MG/DL; Status: F Test: BLOOD UREA NITROGEN; Value: 8; Range: 7-18; Units: MG/DL; Status: F Test: CREATININE FOR GFR; Value: 0.71; Range: 0.55-1.02; Units: MG/DL; Status: F Test: SODIUM LEVEL; Range: 136-145; Units: MEQ/L; Status: I Test: POTASSIUM SERUM; Range: 3.5-5.1; Units: MEQ/L; Status: I Test: CHLORIDE LEVEL; Range: 98-107; Units: MEQ/L; Status: I Test: CARBON DIOXIDE LEVEL; Range: 21-32; Units: MEQ/L; Status: I Test: ANION GAP; Range: 8-16; Units: MEQ/L; Status: I Test: CALCIUM LEVEL; Range: 8.5-10.1; Units: MG/DL; Status: I Test: GLOMERULAR FILTRATION RATE; Value: > 60.0; Range: >60; Status: F Test: SODIUM LEVEL; Value: 140; Range: 136-145; Units: MEQ/L; Status: F Test: POTASSIUM SERUM; Value: 3.6; Range: 3.5-5.1; Units: MEQ/L; Status: F Test: CHLORIDE LEVEL; Value: 105; Range: 98-107; Units: MEQ/L; Status: F Test: CARBON DIOXIDE LEVEL; Value: 26; Range: 21-32; Units: MEQ/L; Status: F Test: ANION GAP; Value: 9; Range: 8-16; Units: MEQ/L; Status: F Test: CALCIUM LEVEL; Value: 8.6; Range: 8.5-10.1; Units: MG/DL; Status: F Test Note: ; Units are mL/min/1.73 m2 Chronic Kidney Disease Staging per NKF: Stage I & II GFR >=60 Normal to Mildly Decreased Stage III GFR 30-59 Moderately Decreased Stage IV GFR 15-29 Severely Decreased Stage V GFR <15 Very Little GFR Left ESRD GFR <15 on QC TECH Lab Order: CBC with Diff; SPEC'M 07/18/16 18:36 Test: WHITE BLOOD COUNT; Value: 8.6; Range: 4.0-10.0; Units: K/mm3; Status: F Test: RED BLOOD COUNT; Value: 3.62; Range: 4.00-5.40; Abnormal: Below low normal; Units: M/mm3; Status: F Test: HEMOGLOBIN; Value: 10.9; Range: 12.0-16.0; Abnormal: Below low normal; Units: g/dl; Status: F Test: HEMATOCRIT; Value: 31.9; Range: 36.0-47.0; Abnormal: Below low normal; Units: %; Status: F Test: MEAN CORPUSCULAR VOLUME; Value: 87.9; Range: 80.0-96.0; Units: fl; Status: F Test: MEAN CORPUSCULAR HEMOGLOBIN; Value: 30.0; Range: 27.0-33.0; Units: pg; Status: F Test: MEAN CORPUSCULAR HGB CONC; Value: 34.1; Range: 32.0-36.5; Units: g/dl; Status: F Test: RED CELL DISTRIBUTION WIDTH; Value: 14.4; Range: 11.5-14.5; Units: %; Status: F Test: PLATELET COUNT, AUTOMATED; Value: 210; Range: 150-450; Units: k/mm3; Status: F Test: NEUTROPHILS %; Value: 69.3; Range: 36.0-66.0; Abnormal: Above high normal; Units: %; Status: F Test: LYMPH %; Value: 22.4; Range: 24.0-44.0; Abnormal: Below low normal; Units: %; Status: F Test: MONO %; Value: 4.9; Range: 0.0-5.0; Units: %; Status: F Test: EOS %; Value: 1.7; Range: 0.0-3.0; Units: %; Status: F Test: BASO %; Value: 0.3; Range: 0.0-1.0; Units: %; Status: F Test: LARGE UNSTAINED CELL %; Value: 1.4; Range: 0.0-4.0; Units: %; Status: F Test: NEUTROPHILS #; Value: 5.9; Range: 1.8-7.7; Units: K/mm3; Status: F Test: LYMPH #; Value: 1.9; Range: 1.5-6.5; Units: K/mm3; Status: F Test: MONO #; Value: 0.4; Range: 0.0-0.8; Units: K/mm3; Status: F Test: EOS #; Value: 0.2; Range: 0.0-0.50; Units: K/mm3; Status: F Test: BASO #; Value: 0.0; Range: 0.0-0.2; Units: K/mm3; Status: F Test: LARGE UNSTAINED CELL #; Value: 0.1; Range: 0.0-0.4; Units: K/mm3; Status: F Lab Order: HCG,Serum Qualitative; [facility] 07/18/16 18:36 Test: HCG, SERUM QUALITATIVE; Value: POSITIVE; Range: NEGATIVE; Abnormal: Abnormal; Status: F Lab Order: Lipase; [facility] 07/18/16 18:36 Test: LIPASE; Value: 67; Range: 73-393; Abnormal: Below low normal; Units: U/L; Status: F Lab Order: Liver Profile; [facility] 07/18/16 18:36 Test: AST/SGOT; Value: 69; Range: 15-37; Abnormal: Above high normal; Units: U/L; Status: F Test: ALT/SGPT; Value: 99; Range: 12-78; Abnormal: Above high normal; Units: U/L; Status: F Test: ALKALINE PHOSPHATASE; Value: 66; Range: 45-117; Units: U/L; Status: F Test: BILIRUBIN,TOTAL; Value: 0.3; Range: 0.2-1.0; Units: MG/DL; Status: F Test: BILIRUBIN,DIRECT; Value: < 0.1; Range: 0.0-0.2; Units: MG/DL; Status: F Test: TOTAL PROTEIN; Value: 6.6; Range: 6.4-8.2; Units: GM/DL; Status: F Test: ALBUMIN; Value: 3.4; Range: 3.2-5.2; Units: GM/DL; Status: F Test: ALBUMIN/GLOBULIN RATIO; Value: 1.06; Range: 1.00-1.93; Status: F Lab Order: Prothrombin Time Profile\E\INR; [facility] 07/18/16 18:36 Test: PROTHROMBIN TIME; Value: 12.5; Range: 12.3-14.5; Units: SECONDS; Status: F Test: INR; Value: 0.92; Status: F Test Note: ; THERAPUTIC HUMAN INR VALUES INDICATIONS NORMAL RANGES PROPHYLAXIS/TREATMENT OF: VENOUS THROMBOSIS 2.0-3.0 PULMONARY EMBOLISM 2.0-3.0 PREVENTION OF SYSTEMIC EMBOLISM FROM: TISSUE HEART VALVES 2.0-3.0 ACUTE MYOCARDIAL INFARCTION 2.0-3.0 VALVULAR HEART DISEASE 2.0-3.0 ATRIAL FIBRILLATION 2.0-3.0 MECHANICAL VALVES(HIGH RISK) 2.5-3.5 RECURRENT MYOCARDIAL INFARCTION 2.5-3.5 Lab Order: Type & Screen; [facility] 07/18/16 18:36 Test: BLOOD TYPE; Value: O POS; Status: F Test: AB SCREEN (INDIRECT YOLANDE)VIS; Value: NEGATIVE; Status: F Lab Order: UA; [facility] 07/18/16 18:36 Test: APPEARANCE, URINE; Value: CLEAR; Range: CLEAR; Status: F Test: COLOR, URINE; Value: YELLOW; Range: YELLOW; Status: F Test: PH,URINE; Value: 6.0; Range: 5.0-9.0; Units: UNITS; Status: F Test: SPECIFIC GRAVITY URINE AUTO; Value: 1.012; Range: 1.002-1.035; Status: F Test: PROTEIN, URINE AUTO; Value: NEGATIVE; Range: NEGATIVE; Units: mg/dL; Status: F Test: GLUCOSE, URINE (UA) AUTO; Value: NEGATIVE; Range: NEGATIVE; Units: mg/dL; Status: F Test: KETONE, URINE AUTO; Value: NEGATIVE; Range: NEGATIVE; Units: mg/dL; Status: F Test: UROBILINOGEN, URINE AUTO; Value: 0.2; Range: 0.0-2.0; Units: mg/dL; Status: F Test: BILIRUBIN, URINE AUTO; Value: NEGATIVE; Range: NEGATIVE; Status: F Test: NITRITE, URINE AUTO; Value: NEGATIVE; Range: NEGATIVE; Status: F Test: LEUKOCYTE ESTERASE, URINE AUTO; Value: NEGATIVE; Range: NEGATIVE; Status: F Test: BLOOD, URINE BLOOD; Value: NEGATIVE; Range: NEGATIVE; Status: F Test: WBC, URINE AUTO; Value: 2; Range: 0-3; Units: /HPF; Status: F Test: RBC, URINE AUTO; Value: 1; Range: 0-3; Units: /HPF; Status: F Test: BACTERIA, URINE AUTO; Value: NEGATIVE; Range: NEGATIVE; Status: F Test: SQUAMOUS EPITHELIAL CELL UR AU; Value: 1; Range: 0-6; Units: /HPF; Status: F Test: MUCUS, URINE; Value: SMALL; Range: NEGATIVE; Status: F Test: HYALINE CAST, URINE AUTO; Value: 0; Range: 0-1; Units: /LPF; Status: F Outcome: 19:41 Discharge ordered by Provider. ke 20:08 Discharge Assessment: Patient awake, alert and oriented x 3. No cognitive and/or cf2 functional deficits noted. Patient verbalized understanding of disposition instructions. Patient awake and alert. Oriented to person, place and time. patient administered narcotics - no. The following High Risk Discharge criteria are identified: None. Discharged to home. Condition: stable. Discharge instructions given to patient, significant other, Instructed on discharge instructions, follow up and referral plans. medication usage, Demonstrated understanding of instructions, medications, Pt was receptive of discharge instructions/ teaching. Prescriptions given X 1. Ultrasound Study completed. Property :Personal belongings accompany Pt. 20:10 Patient left the ED. cf2 Signatures: Ovidio Goodman,RN RN Gerardo Simmons FNP QM NURSE Cecilia GonzálesRN RN ck1 Delmis Schwartz Lisa,RN RN lf1 Debra John Erin, CONSTRUCTION REPRESENTATIVE CONSTRUCTION REPRESENTATIVE Jannette Toledo am17 Renny Ware PA-C PAFran cc10 Debra Crump,RN RN cf2 MTDD
--- NOTE | 2016-07-18 20:20 | REPUSA ---
CLINICAL HISTORY: with pelvic pain TECHNIQUE: Realtime sonographic images of the gravid uterus were obtained in multiple projections via TA approach. The examination was performed by the assembler motor vehicle and still images were submitted f or interpretation. COMMENTS: Single live intrauterine gestation in vertex position correlating to 18 weeks, 5 days with expected d ate of delivery 12/14/2016. Cervical length 3.2 cm heart rate 150 BPM. Placenta is posterior without evidence of previa or abruption, and is grade 0. Subjective amniotic fluid within normal limits. No subchorionic hematoma. IMPRESSION: Single live intrauterine gestation in vertex position correlating to 18 weeks, 5 days with expected d ate of delivery 12/14/2016. Please refer to survey research professor's report for more complete findings.
--- NOTE | 2016-07-20 21:12 | EDDOCDS ---
Physician Documentation [facility] Name: Ciara Simmons Age: 21 yrs Sex: Female : 1995 Arrival Date: 07/18/2016 Time: 17:52 Bed I Private MD: ALAN CORDERO Disposition: 07/18/16 19:41 Discharged to Home/Self Care. Impression: related conditions, unspecified, Headache. - Condition is Stable. - Discharge Instructions: General Headache Without Cause, Abdominal Pain During , Aelf-mg-Caib. - Prescriptions for Reglan 10 mg Oral Tablet - take 1 tablet by ORAL route every 6 hours take 30 minutes before meals and at bedtime; 20 tablet. - Medication Reconciliation, Local Pharmacy Hours form. - Follow up: Coral Miner, OB; When: 4 - 5 days; Reason: Recheck today's complaints, Continuance of care. - Problem is an ongoing problem. - Symptoms are unchanged. Historical: - Allergies: No known drug Allergies; - Home Meds: 1. Vitamin Oral 1 tab once daily 2. Tylenol 325 mg Oral tab every 4 hours (Last dose: 07/18/2016 05:00) - PMHx: PTSD; - PSHx: none; - Social history: Smoking status: Patient states former smoker of tobacco. No barriers to communication noted, The patient speaks fluent Bermudian, Speaks appropriately for age. - Family history: Not pertinent. - : The pt / caregiver states he / she is not on anticoagulants. Home medication list is obtained from the patient. - Exposure Risk Screening:: None identified. 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 2 in. (157.48 cm); 20:04 BP 106 / 63; Pulse 83; Resp 18; Temp 97.6; Pulse Ox 98% ; ajs 17:54 Body Mass Index 21.58 (53.52 kg, 157.48 cm) elp MDM: 18:21 NS 0.9% 1000 ml IV at bolus once ordered. ke 18:21 IV Saline Lock ordered. ke 18:21 Undress patient appropriately for examination ordered. ke 18:21 Metoclopramide 10 mg IV at 40 mg/hr once over 15 mins ordered. ke 18:22 Amylase Ordered. EDMS 18:22 Basic Metabolic Profile Ordered. EDMS 18:22 CBC with Diff Ordered. EDMS 18:22 HCG,Serum Qualitative Ordered. EDMS 18:22 Lipase Ordered. EDMS 18:22 Liver Profile Ordered. EDMS 18:22 Prothrombin Time Profile\E\INR Ordered. EDMS 18:22 Type & Screen Ordered. EDMS 18:23 NOTHING BY MOUTH+DIET ordered. EDMS 18:25 UA Ordered. EDMS 18:25 Urine Culture Ordered. EDMS 18:36 US OBS SINGEL GEST Ordered. EDMS 19:13 Financial registration complete. zo 19:19 [facility] Payment Agreement was scanned into [employer] and attached to record. zo 19:26 CBC with Diff Reviewed. ke 19:26 HCG,Serum Qualitative Reviewed. ke 19:26 Lipase Reviewed. ke 19:26 Liver Profile Reviewed. ke 19:26 Amylase Reviewed. ke 19:26 Basic Metabolic Profile Reviewed. ke 19:26 Prothrombin Time Profile\E\INR Reviewed. ke 19:26 Type & Screen Reviewed. ke 19:26 UA Reviewed. ke 07/19 19:24 T-Sheet-- Draft Copy was scanned into [employer] and attached to record. klr Administered Medications: 07/18 18:47 Drug: NS 0.9% 1000 ml Route: IV; Rate: bolus; Site: left antecubital; jmk 18:47 Drug: Metoclopramide 10 mg [metoclopramide 5 mg/mL injection solution] Route: IV; Rate: jmk 40 mg/hr; Infused Over: 15 mins; Site: left antecubital; Signatures: Dispatcher [employer] EDAZ Ovidio Goodman,RN RN Gerardo Simmons, JUICE MIXER JUICE MIXER Cecilia GonzálesRN RN ck1 Delmis Schwartz Kathie klr Familetti-Gonzalez, Christina,RN RN cf2 The chart was reviewed and I authenticate all verbal orders and agree with the evaluation and treatment provided.Corrections: (The following items were deleted from the chart) 18:35 18:23 US 1ST TRI EA ADDITIONAL GEST+US ordered. EDMS EDMS 18:36 18:35 1ST TRIMESTER US ordered. EDMS EDMS Attachments: 19:19 [facility] Payment Agreement zo 07/19 19:24 T-Sheet-- Draft Copy klr Chart Complete MTDD
--- NOTE | 2016-07-20 21:12 | EDDOCDS ---
Nurse's Notes [facility] Name: Ciara Simmons Age: 21 yrs Sex: Female : 1995 Arrival Date: 07/18/2016 Time: 17:52 Bed I9 Private MD: [facility] [place] Diagnosis: related conditions, unspecified;Headache Presentation: 07/18 17:56 Presenting complaint: Patient states: Headache, sharp pains on right side of abdomen ck1 radiating to umbilicus, increased nausea over the past week. Denies vaginal bleeding. This patient has no additional risk factors. Adult Sepsis Screening: The patient does not have new or worsening altered mentation. Patient's respiratory rate is less than 22. Systolic blood pressure is greater than 100. Patient has a qSOFA score of 0- Negative Sepsis Screen. Suicide/Homicide risk assessment- the patient denies having any suicidal and/or homicidal ideations and does not present with any other emotional, behavioral or mental health complaints. Status: Patient is not a senior service aide or dependent. Transition of care: patient was not received from another setting of care. 17:56 Acuity: DEXTER Level 3 ck1 17:56 Method Of Arrival: Walkin/Carried/Asstd ck1 17:59 Presenting complaint: Patient states: Patient is 18 weeks . ck1 Triage Assessment: 17:59 Headache History: This headache is more severe than any previous headaches the patient ck1 has experienced. General: Appears in no apparent distress, comfortable, Behavior is appropriate for age, cooperative. Pain: Location: head Pain currently is 8 out of 10 on a pain scale. Pain began gradually Also complains of decreased appetite, nausea. HIV screening NA for this visit Offered previously. Neurological: Level of Consciousness is awake, alert, obeys commands, Oriented to person, place, time. GI: Reports nausea. : Denies cramping vaginal bleeding. MANAGER HOME IMPROVEMENT: 18:00 LMP 03/19/2016 ck1 Historical: - Allergies: No known drug Allergies; - Home Meds: 1. Vitamin Oral 1 tab once daily 2. Tylenol 325 mg Oral tab every 4 hours (Last dose: 07/18/2016 05:00) - PMHx: PTSD; - PSHx: none; - Social history: Smoking status: Patient states former smoker of tobacco. No barriers to communication noted, The patient speaks fluent Persian, Speaks appropriately for age. - Family history: Not pertinent. - : The pt / caregiver states he / she is not on anticoagulants. Home medication list is obtained from the patient. - Exposure Risk Screening:: None identified. Screenin:52 Screening information is obtained from the patient. Fall risk: No risks identified. jmk Assistance ADL's: requires no assistance with activities of daily living. Abuse/DV Screen: The patient / caregiver reports he/she is: not in a situation that causes fear, pain or injury. Nutritional screening: No deficits noted. Advance Directives: Currently, there is no health care proxy. There is no active DNR order. There is no living will. There is no Power of Supervisor [place]. Advance directive information has not previously been placed in an [facility] medical record. Further advance directive information is declined. home support is adequate. Assessment: 18:52 General: Appears in no apparent distress, NAD skin warm and dry. color satisfactory. jmk Moist pink oral mucosa. reports 6/10 head pain, yet is actively texting, and watching TV.. Pain: Pain currently is 6 out of 10 on a pain scale. Neurological: Level of Consciousness is awake, alert, Oriented to person, place, time. 18:54 General: Appears FHT 154 of good quality.. jmk 20:08 Reassessment: Patient appears in no apparent distress at this time. Patient states cf2 feeling better. Patient states symptoms have improved. Pain: Location: abdomen. Pain: Pain does not radiate. Quality of pain is described as stabbing. Pain: Pain began 2-3 days ago Is. Pain: Alleviated by nothing. Aggravated by nothing. Pain: Noted to be Also complains of no other associated symptoms. Vital Signs: 17:54 BP 121 / 59; Pulse 83; Resp 16; Temp 98.0(O); Pulse Ox 100% on R/A; Weight 53.52 kg; [facility] Height 5 ft. 2 in. (157.48 cm); 20:04 BP 106 / 63; Pulse 83; Resp 18; Temp 97.6; Pulse Ox 98% ; ajs 17:54 Body Mass Index 21.58 (53.52 kg, 157.48 cm) [facility] Vitals: 17:54 Log In Time: July 18, 2016 at 17:52. elp ED Course: 17:53 Patient visited by Neeta Dahl PCA. elp 17:53 Patient moved to Waiting elp 17:54 [facility] is Private Physician. elp 17:55 Patient visited by Neeta Dahl PCA. elp 17:55 Patient moved to Pre RCE elp 17:58 Triage Initiated ck1 18:08 Patient moved to Triage 1 ck1 18:10 Renny Ware PA-C is [facility]. cc10 18:10 Patient moved to I lf1 18:13 Gerardo Byers FNP is [facility]. ke 18:13 Patient visited by Gerardo Byers FNP. ke 18:13 Patient visited by Gerardo Byers FNP. ke 18:36 Patient visited by Gerardo Byers FNP. ke 18:39 Amylase Sent. jmk 18:39 Basic Metabolic Profile Sent. jmk 18:39 CBC with Diff Sent. jmk 18:39 HCG,Serum Qualitative Sent. jmk 18:39 Lipase Sent. jmk 18:39 Liver Profile Sent. jmk 18:39 Prothrombin Time Profile\E\INR Sent. jmk 18:39 Type & Screen Sent. jmk 18:52 The patient / caregiver is instructed regarding the plan of care and ED course. jmk 18:52 Inserted saline lock: 20 gauge in left. jmk 18:57 Patient visited by Ovidio Goodman,ALAYNA. jmk 19:09 Patient moved to Ultrasound am17 19:19 [facility] Payment Agreement was scanned into [employer] and attached to record. zo 19:24 Patient moved to I am17 19:26 Patient visited by Gerardo Byers FNP. ke 19:41 Coral Miner, OB is Referral Physician. ke 20:04 Patient visited by Debra John. ajs 20:08 Discontinued lock. No procedures done that require assistance. cf2 20:10 Naomi Barraza MD is Attending Physician. cf2 21:17 US OBS AMY PEARL Returned. EDMS 07/19 19:24 T-Sheet-- Draft Copy was scanned into [employer] and attached to record. klr Administered Medications: 07/18 18:47 Drug: NS 0.9% 1000 ml Route: IV; Rate: bolus; Site: left antecubital; jmk 18:47 Drug: Metoclopramide 10 mg [metoclopramide 5 mg/mL injection solution] Route: IV; Rate: jmk 40 mg/hr; Infused Over: 15 mins; Site: left antecubital; Order Results: Lab Order: Amylase; SPEC'M 07/18/16 18:36 Test: AMYLASE; Value: 93; Range: 25-115; Units: U/L; Status: F Lab Order: Basic Metabolic Profile; SPEC'M 07/18/16 18:36 Test: GLUCOSE, FASTING; Value: 70; Range: 70-105; Units: MG/DL; Status: F Test: BLOOD UREA NITROGEN; Value: 8; Range: 7-18; Units: MG/DL; Status: F Test: CREATININE FOR GFR; Value: 0.71; Range: 0.55-1.02; Units: MG/DL; Status: F Test: SODIUM LEVEL; Range: 136-145; Units: MEQ/L; Status: I Test: POTASSIUM SERUM; Range: 3.5-5.1; Units: MEQ/L; Status: I Test: CHLORIDE LEVEL; Range: 98-107; Units: MEQ/L; Status: I Test: CARBON DIOXIDE LEVEL; Range: 21-32; Units: MEQ/L; Status: I Test: ANION GAP; Range: 8-16; Units: MEQ/L; Status: I Test: CALCIUM LEVEL; Range: 8.5-10.1; Units: MG/DL; Status: I Test: GLOMERULAR FILTRATION RATE; Value: > 60.0; Range: >60; Status: F Test: SODIUM LEVEL; Value: 140; Range: 136-145; Units: MEQ/L; Status: F Test: POTASSIUM SERUM; Value: 3.6; Range: 3.5-5.1; Units: MEQ/L; Status: F Test: CHLORIDE LEVEL; Value: 105; Range: 98-107; Units: MEQ/L; Status: F Test: CARBON DIOXIDE LEVEL; Value: 26; Range: 21-32; Units: MEQ/L; Status: F Test: ANION GAP; Value: 9; Range: 8-16; Units: MEQ/L; Status: F Test: CALCIUM LEVEL; Value: 8.6; Range: 8.5-10.1; Units: MG/DL; Status: F Test Note: ; Units are mL/min/1.73 m2 Chronic Kidney Disease Staging per NKF: Stage I & II GFR >=60 Normal to Mildly Decreased Stage III GFR 30-59 Moderately Decreased Stage IV GFR 15-29 Severely Decreased Stage V GFR <15 Very Little GFR Left ESRD GFR <15 on PRODUCT MARKETING ENGINEER Lab Order: CBC with Diff; JAMSHID'M 07/18/16 18:36 Test: WHITE BLOOD COUNT; Value: 8.6; Range: 4.0-10.0; Units: K/mm3; Status: F Test: RED BLOOD COUNT; Value: 3.62; Range: 4.00-5.40; Abnormal: Below low normal; Units: M/mm3; Status: F Test: HEMOGLOBIN; Value: 10.9; Range: 12.0-16.0; Abnormal: Below low normal; Units: g/dl; Status: F Test: HEMATOCRIT; Value: 31.9; Range: 36.0-47.0; Abnormal: Below low normal; Units: %; Status: F Test: MEAN CORPUSCULAR VOLUME; Value: 87.9; Range: 80.0-96.0; Units: fl; Status: F Test: MEAN CORPUSCULAR HEMOGLOBIN; Value: 30.0; Range: 27.0-33.0; Units: pg; Status: F Test: MEAN CORPUSCULAR HGB CONC; Value: 34.1; Range: 32.0-36.5; Units: g/dl; Status: F Test: RED CELL DISTRIBUTION WIDTH; Value: 14.4; Range: 11.5-14.5; Units: %; Status: F Test: PLATELET COUNT, AUTOMATED; Value: 210; Range: 150-450; Units: k/mm3; Status: F Test: NEUTROPHILS %; Value: 69.3; Range: 36.0-66.0; Abnormal: Above high normal; Units: %; Status: F Test: LYMPH %; Value: 22.4; Range: 24.0-44.0; Abnormal: Below low normal; Units: %; Status: F Test: MONO %; Value: 4.9; Range: 0.0-5.0; Units: %; Status: F Test: EOS %; Value: 1.7; Range: 0.0-3.0; Units: %; Status: F Test: BASO %; Value: 0.3; Range: 0.0-1.0; Units: %; Status: F Test: LARGE UNSTAINED CELL %; Value: 1.4; Range: 0.0-4.0; Units: %; Status: F Test: NEUTROPHILS #; Value: 5.9; Range: 1.8-7.7; Units: K/mm3; Status: F Test: LYMPH #; Value: 1.9; Range: 1.5-6.5; Units: K/mm3; Status: F Test: MONO #; Value: 0.4; Range: 0.0-0.8; Units: K/mm3; Status: F Test: EOS #; Value: 0.2; Range: 0.0-0.50; Units: K/mm3; Status: F Test: BASO #; Value: 0.0; Range: 0.0-0.2; Units: K/mm3; Status: F Test: LARGE UNSTAINED CELL #; Value: 0.1; Range: 0.0-0.4; Units: K/mm3; Status: F Lab Order: HCG,Serum Qualitative; [facility] 07/18/16 18:36 Test: HCG, SERUM QUALITATIVE; Value: POSITIVE; Range: NEGATIVE; Abnormal: Abnormal; Status: F Lab Order: Lipase; [facility] 07/18/16 18:36 Test: LIPASE; Value: 67; Range: 73-393; Abnormal: Below low normal; Units: U/L; Status: F Lab Order: Liver Profile; [facility] 07/18/16 18:36 Test: AST/SGOT; Value: 69; Range: 15-37; Abnormal: Above high normal; Units: U/L; Status: F Test: ALT/SGPT; Value: 99; Range: 12-78; Abnormal: Above high normal; Units: U/L; Status: F Test: ALKALINE PHOSPHATASE; Value: 66; Range: 45-117; Units: U/L; Status: F Test: BILIRUBIN,TOTAL; Value: 0.3; Range: 0.2-1.0; Units: MG/DL; Status: F Test: BILIRUBIN,DIRECT; Value: < 0.1; Range: 0.0-0.2; Units: MG/DL; Status: F Test: TOTAL PROTEIN; Value: 6.6; Range: 6.4-8.2; Units: GM/DL; Status: F Test: ALBUMIN; Value: 3.4; Range: 3.2-5.2; Units: GM/DL; Status: F Test: ALBUMIN/GLOBULIN RATIO; Value: 1.06; Range: 1.00-1.93; Status: F Lab Order: Prothrombin Time Profile\E\INR; [facility] 07/18/16 18:36 Test: PROTHROMBIN TIME; Value: 12.5; Range: 12.3-14.5; Units: SECONDS; Status: F Test: INR; Value: 0.92; Status: F Test Note: ; THERAPUTIC HUMAN INR VALUES INDICATIONS NORMAL RANGES PROPHYLAXIS/TREATMENT OF: VENOUS THROMBOSIS 2.0-3.0 PULMONARY EMBOLISM 2.0-3.0 PREVENTION OF SYSTEMIC EMBOLISM FROM: TISSUE HEART VALVES 2.0-3.0 ACUTE MYOCARDIAL INFARCTION 2.0-3.0 VALVULAR HEART DISEASE 2.0-3.0 ATRIAL FIBRILLATION 2.0-3.0 MECHANICAL VALVES(HIGH RISK) 2.5-3.5 RECURRENT MYOCARDIAL INFARCTION 2.5-3.5 Lab Order: Type & Screen; [facility] 07/18/16 18:36 Test: BLOOD TYPE; Value: O POS; Status: F Test: AB SCREEN (INDIRECT YOLANDE)VIS; Value: NEGATIVE; Status: F Lab Order: UA; [facility] 07/18/16 18:36 Test: APPEARANCE, URINE; Value: CLEAR; Range: CLEAR; Status: F Test: COLOR, URINE; Value: YELLOW; Range: YELLOW; Status: F Test: PH,URINE; Value: 6.0; Range: 5.0-9.0; Units: UNITS; Status: F Test: SPECIFIC GRAVITY URINE AUTO; Value: 1.012; Range: 1.002-1.035; Status: F Test: PROTEIN, URINE AUTO; Value: NEGATIVE; Range: NEGATIVE; Units: mg/dL; Status: F Test: GLUCOSE, URINE (UA) AUTO; Value: NEGATIVE; Range: NEGATIVE; Units: mg/dL; Status: F Test: KETONE, URINE AUTO; Value: NEGATIVE; Range: NEGATIVE; Units: mg/dL; Status: F Test: UROBILINOGEN, URINE AUTO; Value: 0.2; Range: 0.0-2.0; Units: mg/dL; Status: F Test: BILIRUBIN, URINE AUTO; Value: NEGATIVE; Range: NEGATIVE; Status: F Test: NITRITE, URINE AUTO; Value: NEGATIVE; Range: NEGATIVE; Status: F Test: LEUKOCYTE ESTERASE, URINE AUTO; Value: NEGATIVE; Range: NEGATIVE; Status: F Test: BLOOD, URINE BLOOD; Value: NEGATIVE; Range: NEGATIVE; Status: F Test: WBC, URINE AUTO; Value: 2; Range: 0-3; Units: /HPF; Status: F Test: RBC, URINE AUTO; Value: 1; Range: 0-3; Units: /HPF; Status: F Test: BACTERIA, URINE AUTO; Value: NEGATIVE; Range: NEGATIVE; Status: F Test: SQUAMOUS EPITHELIAL CELL UR AU; Value: 1; Range: 0-6; Units: /HPF; Status: F Test: MUCUS, URINE; Value: SMALL; Range: NEGATIVE; Status: F Test: HYALINE CAST, URINE AUTO; Value: 0; Range: 0-1; Units: /LPF; Status: F Lab Order: Urine Culture; SPEC'M 07/18/16 18:36 Test: URINE CULTURE; Value: <EXTERNAL COMMENT eCWMed> FULL REPORT IN LAB NOTES (eCW and Medent).; Status: F Test: URINE CULTURE; Value: URINE CULTURE RESULT NO GROWTH CLINICAL SIGNIFICANCE 1 ORGANISM; Status: F Radiology Order: US OBS SINGEL GEST Test: US OBS SINGEL GEST REASON FOR EXAMINATION: Abdomen Pain; ; CLINICAL HISTORY: with pelvic pain; TECHNIQUE: Realtime sonographic images of the gravid uterus were obtained in multiple projections via; TA approach. The examination was performed by the order entry technician and still images were submitted f; or interpretation.; COMMENTS:; Single live intrauterine gestation in vertex position correlating to 18 weeks, 5 days with expected d; ate of delivery 12/14/2016.; Cervical length 3.2 cm; heart rate 150 BPM.; Placenta is posterior without evidence of previa or abruption, and is grade 0.; Subjective amniotic fluid within normal limits. No subchorionic hematoma.; IMPRESSION:; Single live intrauterine gestation in vertex position correlating to 18 weeks, 5 days with expected d; ate of delivery 12/14/2016. Please refer to junior buyer's report for more complete findings.; ; Outcome: 19:41 Discharge ordered by Provider. 20:08 Discharge Assessment: Patient awake, alert and oriented x 3. No cognitive and/or cf2 functional deficits noted. Patient verbalized understanding of disposition instructions. Patient awake and alert. Oriented to person, place and time. patient administered narcotics - no. The following High Risk Discharge criteria are identified: None. Discharged to home. Condition: stable. Discharge instructions given to patient, significant other, Instructed on discharge instructions, follow up and referral plans. medication usage, Demonstrated understanding of instructions, medications, Pt was receptive of discharge instructions/ teaching. Prescriptions given X 1. Ultrasound Study completed. Property :Personal belongings accompany Pt. 20:10 Patient left the ED. cf2 Signatures: Dispatcher [employer] EDMS Ovidio Goodman,RN RN leannk Gerardo Byers, CLINICAL ORTHOPTIST CLINICAL ORTHOPTIST Cecilia GonzálesRN RN ck1 Delmis Schwartz Lisa,RN RN lf1 Debra John Erin, PANMAN PANMAN Jannette Toledo am17 Renny Ware, PA-C PA-C cc10 Bijal Mcpherson Christina,RN RN cf2 Chart Complete MTDD
--- NOTE | 2016-07-20 21:12 | EDDOCDS ---
Physician Documentation [facility] Name: Ciara Simmons Age: 21 yrs Sex: Female : 1995 Arrival Date: 07/18/2016 Time: 17:52 Bed I Private MD: ALAN CORDERO Disposition: 07/18/16 19:41 Discharged to Home/Self Care. Impression: related conditions, unspecified, Headache. - Condition is Stable. - Discharge Instructions: General Headache Without Cause, Abdominal Pain During , [id number]-[id number]. - Prescriptions for Reglan 10 mg Oral Tablet - take 1 tablet by ORAL route every 6 hours take 30 minutes before meals and at bedtime; 20 tablet. - Medication Reconciliation, Local Pharmacy Hours form. - Follow up: Coral Miner, OB; When: 4 - 5 days; Reason: Recheck today's complaints, Continuance of care. - Problem is an ongoing problem. - Symptoms are unchanged. Historical: - Allergies: No known drug Allergies; - Home Meds: 1. Vitamin Oral 1 tab once daily 2. Tylenol 325 mg Oral tab every 4 hours (Last dose: 07/18/2016 05:00) - PMHx: PTSD; - PSHx: none; - Social history: Smoking status: Patient states former smoker of tobacco. No barriers to communication noted, The patient speaks fluent Croatian, Speaks appropriately for age. - Family history: Not pertinent. - : The pt / caregiver states he / she is not on anticoagulants. Home medication list is obtained from the patient. - Exposure Risk Screening:: None identified. VP [employer] AFFAIRS: 07/18 18:00 LMP 03/19/2016 ck1 Vital Signs: 17:54 BP 121 / 59; Pulse 83; Resp 16; Temp 98.0(O); Pulse Ox 100% on R/A; Weight 53.52 kg / elp 117.99 lbs; Height 5 ft. 2 in. (157.48 cm); 20:04 BP 106 / 63; Pulse 83; Resp 18; Temp 97.6; Pulse Ox 98% ; ajs 17:54 Body Mass Index 21.58 (53.52 kg, 157.48 cm) elp MDM: 18:21 NS 0.9% 1000 ml IV at bolus once ordered. ke 18:21 IV Saline Lock ordered. ke 18:21 Undress patient appropriately for examination ordered. ke 18:21 Metoclopramide 10 mg IV at 40 mg/hr once over 15 mins ordered. ke 18:22 Amylase Ordered. EDMS 18:22 Basic Metabolic Profile Ordered. EDMS 18:22 CBC with Diff Ordered. EDMS 18:22 HCG,Serum Qualitative Ordered. EDMS 18:22 Lipase Ordered. EDMS 18:22 Liver Profile Ordered. EDMS 18:22 Prothrombin Time Profile\E\INR Ordered. EDMS 18:22 Type & Screen Ordered. EDMS 18:23 NOTHING BY MOUTH+DIET ordered. EDMS 18:25 UA Ordered. EDMS 18:25 Urine Culture Ordered. EDMS 18:36 US OBS SINGEL GEST Ordered. EDMS 19:13 Financial registration complete. zo 19:19 [facility] Payment Agreement was scanned into [employer] and attached to record. zo 19:26 CBC with Diff Reviewed. ke 19:26 HCG,Serum Qualitative Reviewed. ke 19:26 Lipase Reviewed. ke 19:26 Liver Profile Reviewed. ke 19:26 Amylase Reviewed. ke 19:26 Basic Metabolic Profile Reviewed. ke 19:26 Prothrombin Time Profile\E\INR Reviewed. ke 19:26 Type & Screen Reviewed. ke 19:26 UA Reviewed. ke 07/19 19:24 T-Sheet-- Draft Copy was scanned into [employer] and attached to record. klr Administered Medications: 07/18 18:47 Drug: NS 0.9% 1000 ml Route: IV; Rate: bolus; Site: left antecubital; jmk 18:47 Drug: Metoclopramide 10 mg [metoclopramide 5 mg/mL injection solution] Route: IV; Rate: jmk 40 mg/hr; Infused Over: 15 mins; Site: left antecubital; Signatures: Dispatcher [employer] EDNE Ovidio Goodman,RN RN Gerardo Simmons, ASSURANCE OFFICER ASSURANCE OFFICER Cecilia GonzálesRN RN ck1 Delmis Schwartz Kathie klr Familetti-Gonzalez, Christina,RN RN cf2 The chart was reviewed and I authenticate all verbal orders and agree with the evaluation and treatment provided.Corrections: (The following items were deleted from the chart) 18:35 18:23 US 1ST TRI EA ADDITIONAL GEST+US ordered. EDMS EDMS 18:36 18:35 1ST TRIMESTER US ordered. EDMS EDMS Attachments: 19:19 [facility] Payment Agreement zo 07/19 19:24 T-Sheet-- Draft Copy klr Chart Complete MTDD
== END 2016-07-18 20:10 | disposition home or self-care (01) ==
LOC: M ED 17:52
DX: O99.89 Other specified diseases and conditions complicating pregnancy, childbirth and the puerperium (principal); R51 Headache; Z3A.18 18 weeks gestation of pregnancy; O99.342 Other mental disorders complicating pregnancy, second trimester; F43.10 Post-traumatic stress disorder, unspecified; Z87.891 Personal history of nicotine dependence
CPT/HCPCS: 36415; 76811; 80048; 80076; 81001; 82150; 83690; 84703; 85025; 85610; 86850; 86900; 86901; 87086; 96374; 99284; J2765

== ENCOUNTER 2016-09-01 16:55 | Outpatient (CLI) | payer OTHER ==
--- NOTE | 2016-09-01 18:50 | REPUSA ---
CLINICAL HISTORY: Trauma, rule out abruption. The study is requested to evaluate the amniotic fluid level FINDINGS: Limited ultrasound evaluation reveals a live, intrauterine gestation in a vertex position. The heart rate is 144. The placenta is anterior and placenta previa is not identified. Subjectively, t he amniotic fluid volume appears normal. The LAITH is 10.6, which is normal for gestational age. Nuch al cord was not seen. The S/D ratio is 2.88, which is normal for gestational age. Anatomical survey was neither requested nor performed on this exam. Biometry and growth: Cervical length: 3.3 cm. heart rate: 144 bpm. Amniotic fluid index: 10.6 cm (9.7 - 22.1) Doppler: Umbilical - mid cord PSV: 54.4 cm/s. EDV: 18.9 cm/s S/D: 2.88 (2.60 - 4.00) RI: 0.65 (0.59 - 0.75) IMPRESSION: LAITH is WNL> No abruption seen on exam. Thank you for your kind referral of this patient. We appreciate the opportunity to participate in thi s patient's care.
== END 2016-09-01 21:25 | disposition home or self-care (01) ==
LOC: M LDO 16:55
PROVIDERS: ATTEND Advanced Practice Midwife
DX: O9A.312 Physical abuse complicating pregnancy, second trimester (principal); Z3A.25 25 weeks gestation of pregnancy

== ENCOUNTER 2016-10-29 20:48 | Outpatient (CLI) | payer OTHER ==
[~2016-10-29] VITALS: Ht 157.5 cm; Wt 58.0 kg
[2016-10-29 20:59] VITALS: BP 111/63
[2016-10-29] MEDS ORDERED: ACET50TA PO (21:04)
[2016-10-29] MEDS ORDERED: PRENTAB9 PO (21:04)
[2016-10-29 22:46] VITALS: BP 116/69
== END 2016-10-29 23:01 | disposition home or self-care (01) ==
LOC: M LDO 20:48
PROVIDERS: ATTEND Student in an Organized Health Care Education/Training Program
DX: O26.893 Other specified pregnancy related conditions, third trimester (principal); Z3A.33 33 weeks gestation of pregnancy; R10.30 Lower abdominal pain, unspecified